=== PATIENT | male | born 2005 | race Two or more races ===

== ENCOUNTER 2025-03-15 13:53 | Emergency (ER) | payer OTHER ==
[~2025-03-15] VITALS: Ht 177.8 cm; Wt 81.6 kg
[2025-03-15] MEDS ORDERED: KEPPRA500 MG PO ×2 (14:00→19:04)
[2025-03-15] MEDS ORDERED: 0.9 % SODIUM CHLORIDE 1,000 ML IV ONE (14:45)
[2025-03-15] MEDS ORDERED: FAMOTIDINE/PF 20 MG/2 ML VIAL IV ONE (14:45)
[2025-03-15] MEDS ORDERED: FAMOTIDINE/PF 20 MG/2 ML VIAL ONE (14:51)
[2025-03-15 16:10] LABS: BASO % 0.9 % (0.1-1.2); EOS # 0.16 (0.04-0.54); EOS % 2.0 % (0.7-7.0); LYMPH # 1.66 (1.18-3.74); LYMPH % 20.4 % (19.3-53.1); MEAN PLATELET VOLUME 10.10 fl (9.4-12.4); MONO # 0.93 (0.24-0.82); MONO % 11.4 % (4.7-12.5); NEUT # 5.28 (1.56-6.13); NEUT % 64.8 % (34.0-71.1); RED CELL DISTRIBUTION WIDTH 12.0 % (11.6-14.4)
[2025-03-15 16:47] LABS: INR 1.04
[2025-03-15 17:02] LABS: ALT/SGPT 28.0 U/L (12-78); AST/SGOT 16.0 U/L (15-37); BILIRUBIN TOTAL 0.93 mg/dL (0.3-1.2); BUN CREA RATIO 8.0 (7.0-25.0); CKMB 1.3 NG/ML (0.5-3.6); CREATININE SERUM 1.09 mg/dL (0.70-1.30); GFR 85.4; GLOBULINA 3.1 G/DL (2.4-3.5); GLUCOSE FASTING 89.0 mg/dL (65-100); OSMOLALITY SERUM 281.0 MOSM/KG (275-295); PHOSPHOKINASE CREATININE 473.0 U/L (39-308)
[2025-03-15 17:30] LABS: URINE APPEARANCE Clear; URINE BILIRRUBIN Negative (NEGATIVE); URINE BLOOD Negative; URINE COLOR Yellow; URINE GLUCOSE Negative (NEGATIVE); URINE KETONE Negative (NEGATIVE); URINE LEUKOCYTE Negative; URINE NITRATE Negative; URINE PROTEIN Negative (NEGATIVE); URINE UROBILINOGEN 1.0 E.U./dl
[2025-03-15 17:31] LABS: URINE BACTERIA 7.1 uL (0.0-1933); URINE RBC 4.3 uL (0.0-20.8); URINE WBC 2.2 uL (0.0-23.2)
[2025-03-15 17:41] LABS: COCAINE NEGATIVE (NEGATIVE); METHADONE NEGATIVE (NEGATIVE); OPIATES NEGATIVE (NEGATIVE); THC ( Cannabinoids) NEGATIVE (NEGATIVE)
[2025-03-15 17:45] LABS: URINE CAST 0.14 uL (0.0-1.40); URINE EPITHELIAL CELLS 0.0 uL (0.0-38.8)
== END 2025-03-15 19:24 ==
LOC: ER 13:53
PROVIDERS: General Practice
DX: G40.802 Other epilepsy, not intractable, without status epilepticus (principal)

== ENCOUNTER 2025-04-07 11:08 | Emergency (ER) | payer OTHER ==
[~2025-04-07] VITALS: Ht 175.3 cm; Wt 81.6 kg
[~2025-04-07 11:08] MED LIST: KEPPRA500 MG PO
[2025-04-07] MEDS ORDERED: KETOROLAC TROMETHAMINE 30 MG VIAL IV ONE (11:45)
[2025-04-07] MEDS ORDERED: KETOROLAC TROMETHAMINE 30 MG VIAL ONE (12:33)
[2025-04-07 12:47] LABS: BASO % 0.8 % (0.1-1.2); EOS # 0.13 (0.04-0.54); EOS % 1.2 % (0.7-7.0); LYMPH # 1.51 (1.18-3.74); LYMPH % 14.5 % (19.3-53.1); MEAN PLATELET VOLUME 9.70 fl (9.4-12.4); MONO # 1.15 (0.24-0.82); MONO % 11.0 % (4.7-12.5); NEUT # 7.49 (1.56-6.13); NEUT % 72.0 % (34.0-71.1); RED CELL DISTRIBUTION WIDTH 11.7 % (11.6-14.4)
[2025-04-07 13:58] LABS: PHOSPHOKINASE CREATININE 286 U/L (39-308)
[2025-04-07 14:15] LABS: CKMB < 1.0 NG/ML (0.5-3.6)
[2025-04-07] MEDS ORDERED: NORFLEX100MG PO (14:37)
[2025-04-08] MEDS ORDERED: HYDROXYZINE PAM50 MG PO (03:23)
== END 2025-04-07 14:55 | disposition home or self-care (01) ==
LOC: ER 11:08
PROVIDERS: General Practice
DX: R07.89 Other chest pain (principal); M94.0 Chondrocostal junction syndrome [Tietze]

== ENCOUNTER 2025-04-08 00:56 | Emergency (ER) | payer OTHER ==
[~2025-04-08] VITALS: Ht 175.3 cm; Wt 81.6 kg
[~2025-04-08 00:56] MED LIST changes: +NORFLEX100MG PO
[2025-04-08 01:28] VITALS: BP 113/70; O2SAT 100
[2025-04-08] MEDS ORDERED: HYDROXYZINE PAM50 MG PO (03:23)
== END 2025-04-08 03:27 | disposition home or self-care (01) ==
LOC: ER 00:57
DX: F41.9 Anxiety disorder, unspecified (principal); R20.0 Anesthesia of skin; R07.89 Other chest pain